=== PATIENT | female | born 1995 | race Two or more races ===

== ENCOUNTER 2018-03-05 19:39 | Emergency (ER) | payer OTHER ==
[~2018-03-05] VITALS: Ht 162.6 cm; Wt 59.0 kg
[2018-03-05] MEDS ORDERED: MORPHINE SULFATE 2 MG/ML VIAL. IV ONE (20:00)
[2018-03-05 20:26] LABS: BILIRUBIN,URINE NEGATIVE (NEG); CLARITY,URINE TURBID; COLOR,URINE YELLOW; NITRITE,URINE NEGATIVE (NEG); PROTEIN,URINE NEGATIVE (NEG-TRACE); UROBILINOGEN,URINE 0.2 mg/dL (0.2 mg/dL)
[2018-03-05 20:26] LABS: BASO # 0.1 x10^3/uL (0.0-0.2); BASO % 1 % (0-3); EOS # 0.1 x10^3/uL (0.0-0.7); EOS % 1 % (0-3); HEMATOCRIT 32.2 % (36.0-47.0); LYMPH % 22 % (24-48); MEAN CORPUSCULAR HEMOGLOBIN 29 pg (25-35); MEAN CORPUSCULAR HGB CONC 34 g/dL (31-37); MEAN CORPUSCULAR VOLUME 86 fL (79-100); MONO # 0.6 x10^3/uL (0.0-1.1); MONO % 6 % (0-9); NEUT # 6.3 x10^3uL (1.8-7.7); NEUT % 70 % (31-73); PLATELET COUNT 195 x10^3/uL (140-400); RED BLOOD COUNT 3.77 x10^6/uL (3.50-5.40); WHITE BLOOD COUNT 9.1 x10^3/uL (4.0-11.0)
[2018-03-05 20:37] LABS: RBC,URINE >40 /HPF (0-2); SQUAMOUS EPITHELIAL CELL,UR FEW /LPF
[2018-03-05 20:37] LABS: CALCIUM 9.1 mg/dL (8.5-10.1); CREATININE 0.7 mg/dL (0.6-1.0); GFR 103.7; POTASSIUM 3.6 mmol/L (3.5-5.1)
[2018-03-05 20:38] LABS: AMORPHOUS SEDIMENT,UR PRESENT /HPF; BACTERIA,URINE FEW /HPF (0-FEW); WBC,URINE OCC /HPF (0-4)
[2018-03-05 20:43] LABS: ALBUMIN 3.2 g/dL (3.4-5.0); ALBUMIN/GLOBULIN RATIO 0.8 (1.0-1.7); TOTAL BILIRUBIN 0.1 mg/dL (0.2-1.0); TOTAL PROTEIN 7.1 g/dL (6.4-8.2)
--- NOTE | 2018-03-05 21:09 | PHYS DOC ---
Past Medical History Past Medical History: No Pertinent History Past Surgical History: No Surgical History Alcohol Use: None Drug Use: None Adult General Chief Complaint Chief Complaint: VAGINAL BLEEDING HPI HPI Patient is a 23 year old female who presents to be evaluated for a miscarriage. Patient states she is a 4 para 2, with one elective . She states on Sunday of this week she started spotting. She states she was roughly 8 weeks with last menstrual cycle being December 23, 2017. She states she woke up on Sunday and was bleeding. She states she went to [facility], she states they did an ultrasound and told her her fetus has no heart beat. She states she was informed she is going to have a miscarriage and was instructed to follow-up with her own doctor. She states she followed up with her own PCP on Sunday who put her on Misoprostol. She states she started passing products of conception yesterday as well as today , she states today she feels something is stuck in her vagina. She states she tried removing it but she was not able to. She states she has been bleeding more today. Review of Systems Review of Systems Constitutional: Denies fever or chills [] Eyes: Denies change in visual acuity, redness, or eye pain [] HENT: Denies nasal congestion or sore throat [] Respiratory: Denies cough or shortness of breath [] Cardiovascular: No additional information not addressed in HPI [] GI: Reports miscarriage. Denies abdominal pain, nausea, vomiting, bloody stools or diarrhea [] : Denies dysuria or hematuria [] Musculoskeletal: Denies back pain or joint pain [] Integument: Denies rash or skin lesions [] Neurologic: Denies headache, focal weakness or sensory changes [] All other systems were reviewed and found to be within normal limits, except as documented in this note. Current Medications Current Medications Current Medications Medications (Trade) Dose Ordered Sig/Bridget Start Time Stop Time Status Last Admin Dose Admin Morphine Sulfate (Morphine Sulfate) 2 mg 1X ONCE 03/05/18 20:00 03/05/18 20:12 DC Allergies Allergies Allergies Coded Allergies Type Severity Reaction Last Updated Verified Penicillins Allergy Severe DIFFICULTY BREATHING 03/05/18 Yes Physical Exam Physical Exam Constitutional: Well developed, well nourished, no acute distress, non-toxic appearance. [] HENT: Normocephalic, atraumatic, bilateral external ears normal, oropharynx moist, no oral exudates, nose normal. [] Eyes: PERRLA, EOMI, conjunctiva normal, no discharge. [] Neck: Normal range of motion, no tenderness, supple, no stridor. [] Cardiovascular:Heart rate regular rhythm, no murmur [] Lungs & Thorax: Bilateral breath sounds clear to auscultation [] Abdomen: Bowel sounds normal, soft, no tenderness, no masses, no pulsatile masses. [] Pelvic exam External pelvic has small amount of blood. The small amount of blood in the vaginal vault, and cervical OS, no CMT on exam. No adnexal tenderness. Skin: Warm, dry, no erythema, no rash. [] Back: No tenderness, no CVA tenderness. [] Extremities: No tenderness, no cyanosis, no clubbing, ROM intact, no edema. [] Neurologic: Alert and oriented X 3, normal motor function, normal sensory function, no focal deficits noted. [] Psychologic: Affect normal, judgement normal, mood normal. [] Current Patient Data Vital Signs Vital Signs Date Time Temp Pulse Resp B/P (MAP) Pulse Ox O2 Delivery O2 Flow Rate FiO2 03/05/18 21:15 96 16 126/78 (94) 98 Room Air 03/05/18 20:04 98.4 98.4 Lab Values Laboratory Tests Test 03/05/18 19:45 03/05/18 20:10 Urine Collection Type Unknown Urine Color Yellow Urine Clarity Turbid Urine pH 8.0 Urine Specific [place] 1.015 Urine Protein Negative mg/dL (NEG-TRACE) Urine Glucose (UA) Negative mg/dL (NEG) Urine Ketones (Stick) Negative mg/dL (NEG) Urine Blood Large (NEG) Urine Nitrite Negative (NEG) Urine Bilirubin Negative (NEG) Urine Urobilinogen Dipstick 0.2 mg/dL (0.2 mg/dL) Urine Leukocyte Esterase Trace (NEG) Urine RBC >40 /HPF (0-2) Urine WBC Occ /HPF (0-4) Urine Squamous Epithelial Cells Few /LPF Urine Amorphous Sediment Present /HPF Urine Bacteria Few /HPF (0-FEW) White Blood Count 9.1 x10^3/uL (4.0-11.0) Red Blood Count 3.77 x10^6/uL (3.50-5.40) Hemoglobin 11.0 g/dL (12.0-15.5) L Hematocrit 32.2 % (36.0-47.0) L Mean Corpuscular Volume 86 fL (79-100) Mean Corpuscular Hemoglobin 29 pg (25-35) Mean Corpuscular Hemoglobin Concent 34 g/dL (31-37) Red Cell Distribution Width 15.0 % (11.5-14.5) H Platelet Count 195 x10^3/uL (140-400) Neutrophils (%) (Auto) 70 % (31-73) Lymphocytes (%) (Auto) 22 % (24-48) L Monocytes (%) (Auto) 6 % (0-9) Eosinophils (%) (Auto) 1 % (0-3) Basophils (%) (Auto) 1 % (0-3) Neutrophils # (Auto) 6.3 x10^3uL (1.8-7.7) Lymphocytes # (Auto) 2.0 x10^3/uL (1.0-4.8) Monocytes # (Auto) 0.6 x10^3/uL (0.0-1.1) Eosinophils # (Auto) 0.1 x10^3/uL (0.0-0.7) Basophils # (Auto) 0.1 x10^3/uL (0.0-0.2) Maternal Serum HCG Beta Subunit 961 mIU/mL (0-5) H Sodium Level 141 mmol/L (136-145) Potassium Level 3.6 mmol/L (3.5-5.1) Chloride Level 104 mmol/L (98-107) Carbon Dioxide Level 29 mmol/L (21-32) Anion Gap 8 (6-14) Blood Urea Nitrogen 10 mg/dL (7-20) Creatinine 0.7 mg/dL (0.6-1.0) Estimated GFR (Cockcroft-Gault) 103.7 BUN/Creatinine Ratio 14 (6-20) Glucose Level 102 mg/dL (70-99) H Calcium Level 9.1 mg/dL (8.5-10.1) Total Bilirubin 0.1 mg/dL (0.2-1.0) L Aspartate Amino Transferase (AST) 17 U/L (15-37) Alanine Aminotransferase (ALT) 15 U/L (14-59) Alkaline Phosphatase 65 U/L (46-116) Total Protein 7.1 g/dL (6.4-8.2) Albumin 3.2 g/dL (3.4-5.0) L Albumin/Globulin Ratio 0.8 (1.0-1.7) L Laboratory Tests 03/05/18 20:10 Laboratory Tests 03/05/18 20:10 EKG EKG [] Radiology/Procedures Radiology/Procedures []PROCEDURE: OB <14 WKS W/TV Indication:VAG BLEEDING PT WAS TOLD HAVING MISCARRIAGE ON SUNDAY, PT FEELS LIKE CLOT STUCK TECHNIQUE: Grayscale, color Doppler and spectral waveform images of the pelvis obtained. COMPARISON:None FINDINGS: The uterus is retroverted and measures 10.0 x 5.6 x 5.6 cm (longitudinal, AP, transverse). No blood flow is seen in the lower uterine segment. The endometrial stripe is significantly thickened measuring 2.2 cm without internal vascularity. The left ovary measures 1.9 x 3.4 x 1.7 cm with a dominant follicle and shows blood flow. The right ovary measures 1.3 x 3.5 x 1.5 cm and shows blood flow. Small hematoma in the endocervical canal. IMPRESSION: 1. Suggestion of small hematoma in the endocervical canal. 2. Significantly thickened endometrial lining. Retained products of conception cannot be ruled out although no vascularity seen. 3. Bilateral ovaries demonstrate evidence of blood flow. Electronically signed by: Nader Huitron DO (03/05/2018 9:50 PM) [facility] DICTATED and SIGNED BY: NADER HUITRON DO DATE: 03/05/182145 Course & Med Decision Making Course & Med Decision Making Pertinent Labs and Imaging studies reviewed. (See chart for details) This is a 23-year-old female patient presenting to the ED today to be evaluated for a miscarriage. She is a 4 para 2 and was supposedly 8 weeks . She started spotting on Sunday, was seen at a different facility, was informed she is 8 weeks and her fetus has no heart beat. She was put on Misoprostol by her PCP on Sunday and today she feels products of conception are stuck in her vagina. On vaginal exam patient had small amount of blood which was removed from the vaginal vault. CBC with normal WBC, hemoglobin 11.0 hematocrit 32.0, CMP with no acute findings, beta hCG 961. OB ultrasound was noted for small hematoma in the endocervical canal, significantly thickened endometrial lining retained products of conception could not be ruled out although no vascularity were seen. Spoke with Dr. Mendez [employer] concerning patient's ultrasound results. She stated we can send patient home on antibiotics and pain medicine and reassure her he takes up to 2 weeks for a miscarriage to be completely done. Patient's blood group is A+. Vitals are stable, she is afebrile. D/c on [place] and cephalaxin. F/ u with her doctor in 2-7 days Dragon Disclaimer Dragon Disclaimer This electronic medical record was generated, in whole or in part, using a voice recognition dictation system. Departure Departure Impression: Primary Impression: Miscarriage Disposition: 01 HOME, SELF-CARE Condition: STABLE Referrals: UNKNOWN PCP NAME (PCP) follow up with your doctor in the course of this week or next week Patient Instructions: Miscarriage, [id number] Additional Instructions: You were evaluated in the emergency room with an ongoing miscarriage. Sorry about this situation. Continue being patient with the process. It can take up to 2 weeks. Take the prescribed medications as ordered. Come back to the emergency room at any point symptoms worsen. Follow-up with your own doctor in the course of this week or next week. Scripts Clindamycin Hcl (CLINDAMYCIN HCL) 300 Mg Capsule 1 CAP PO TID, #21 CAP Prov: MELBA SHAH APRN 03/05/18 Hydrocodone/Apap 5-325 (NORCO 5-325 TABLET) 1 Each Tablet 1 TAB PO Q6-8HRS PRN for PAIN, #12 TAB Prov: MELBA SHAH APRN 03/05/18 MELBA SHAH APRN Mar 05, 2018 21:09
--- NOTE | 2018-03-05 21:54 | RAD ---
Indication:VAG BLEEDING PT WAS TOLD HAVING MISCARRIAGE ON SUNDAY, PT FEELS LIKE CLOT STUCK TECHNIQUE: Grayscale, color Doppler and spectral waveform images of the pelvis obtained. COMPARISON:None FINDINGS: The uterus is retroverted and measures 10.0 x 5.6 x 5.6 cm (longitudinal, AP, transverse). No blood flow is seen in the lower uterine segment. The endometrial stripe is significantly thickened measuring 2.2 cm without internal vascularity. The left ovary measures 1.9 x 3.4 x 1.7 cm with a dominant follicle and shows blood flow. The right ovary measures 1.3 x 3.5 x 1.5 cm and shows blood flow. Small hematoma in the endocervical canal. IMPRESSION: 1. Suggestion of small hematoma in the endocervical canal. 2. Significantly thickened endometrial lining. Retained products of conception cannot be ruled out although no vascularity seen. 3. Bilateral ovaries demonstrate evidence of blood flow. Electronically signed by: Nader Durand DO (03/05/2018 9:50 PM) [facility]
[2018-03-05] MEDS ORDERED: CLIN300C8 PO (22:26)
[2018-03-05] MEDS ORDERED: HYDR-3164 PO (22:26)
[2018-03-05 22:41] VITALS: BP 128/74
== END 2018-03-05 22:43 | disposition home or self-care (01) ==
LOC: ER 19:39
DX: O03.9 Complete or unspecified spontaneous abortion without complication (principal); Z3A.08 8 weeks gestation of pregnancy; Z88.0 Allergy status to penicillin
CPT/HCPCS: 36415; 76801; 76817; 80053; 81001; 84702; 85025; 86850; 86900; 86901; 99284-25